=== PATIENT | female | born 1935 | race Caucasian/White ===

== ENCOUNTER 2017-09-28 01:29 | Inpatient (IN) | payer MEDICARE, OTHER ==
[2017-09-27 15:19] LABS: INR 1.02
--- NOTE | 2017-09-27 19:21 | RADIOLOGY IMAGING REPORT ---
FACILITY: [facility] PATIENT NAME: Sharlene Mazariegos : 1935 MR: [id number] V: [id number] EXAM DATE: ORDERING PHYSICIAN: ALBERTO PEÑA TECHNOLOGIST: Location: [facility] Patient: Sharlene Mazariegos : 1935 Visit/Account:[id number] Date of Sevice: 09/20/2017 LEGS BILAT STANDING HIPS-ANKLE Indication: PREOP Comparison: None. Findings: Right leg length: 82 cm. This is measured from the cephalad portion of the femoral head to the tibia l distal articular surface. Right femur measurement from the superior margin of the femoral head to the medial femoral condyle is 46.5 cm.. The right tibia measures 35 cm from the medial tibial platea u to the medial tibial plafond. Left leg measurement: 81 cm. The left femur measures 45.5 cm from the superior margin of the left fe moral head to the medial femoral condyle. The left tibia measures 35 cm from the medial tibial plate au to the medial tibial plafond. There are postoperative changes from a right total hip arthroplasty and right knee arthroplasty. Ther e are severe degenerative changes in the left knee. Impression: 1. Right lower extremity length is 82 cm. There are postoperative changes from a right total hip and right total knee arthroplasty. 2. Left lower extremity length is 81 cm. There are severe osteoarthritic degenerative changes in the left knee. Report Dictated By: Yuval Guajardo at 09/27/2017 7:05 PM Report E-Signed By: Yuval Guajardo at 09/27/2017 7:16 PM WSN:[id number]
[~2017-09-28] VITALS: Ht 160 cm; Wt 63.0 kg
[2017-09-28] VITALS (15 sets, daily range): BP systolic 88–142; BP diastolic 43–87
[~2017-09-28 01:29] MED LIST: AMI200 PO; ASPI-1471 PO; CHOL100058 PO; CIP500 PO; COS10OD OP; DOC100 PO; GLAUCOMA DROPS; HCTZ25 PO; HYDR-2966 PO; HYDR12.556 PO; LATA2.5D7 OP; LEV75 PO; LISI-374 PO; METO-259 PO; METO25TA23 PO; MOM PO; OXYC-823 PO; OXYC5CAP21 PO; PREGABALIN PO ONE; RIV10 PO; TAPE50TA8 PO
[2017-09-28] MEDS ORDERED: ACETAMINOPHEN 500 MG TAB PO ONE ×2 (07:30→08:55)
[2017-09-28] MEDS ORDERED: CELECOXIB 200 MG CAP PO ONE ×2 (07:30→08:55)
[2017-09-28] MEDS ORDERED: LIDOCAINE MPF 1% 5 ML VIAL ONE (07:53)
[2017-09-28] MEDS ORDERED: ONDANSETRON 4 MG/2 ML VIAL ONE (07:53)
[2017-09-28] MEDS ORDERED: DEXAMETHASONE SOD 4 MG/ML VIAL ONE (07:53)
[2017-09-28] MEDS ORDERED: PROPOFOL EMUL(*) 10MG/ML 20 ML 20 ML ONE (07:53)
[2017-09-28] MEDS ORDERED: ePHEDrine 25 MG/5 ML DISP.SYR IVP ONE (08:27)
[2017-09-28] MEDS ORDERED: MIDAZOLAM 2 MG/2 ML VIAL IVP PRN (08:55)
[2017-09-28] MEDS ORDERED: NORMOSOL R SOLN(*) 1000 ML BAG 1,000 ML IV PRN (08:55)
[2017-09-28] MEDS ORDERED: ceFAZolin(*) 1 GM VIAL 1 GM in NS(*) 0.9% 100 ML ADDVANT BAG 100 ML IVPB ONE (08:55)
[2017-09-28] MEDS ORDERED: PREGABALIN PO ONE (08:55)
[2017-09-28] MEDS ORDERED: PREGABALIN 50 MG CAP PO ONE (08:55)
[2017-09-28] MEDS ORDERED: FAMOTIDINE 20 MG TAB PO ONE (08:55)
[2017-09-28] MEDS ORDERED: LIDOCAINE/SOD BICARB 8.4% SYR ID ONE (08:55)
[2017-09-28] MEDS ORDERED: cloNIDine EPIDUR INJ 100MCG/ML 40 MCG, ROPIVACAINE 0.5% 20 ML VIAL 25 ML, EPINEPHrine H... INJ ONE (08:55)
[2017-09-28] MEDS ORDERED: TRANEXAMIC AC 1000 MG/10ML SDV 1,000 MG in DEXTROSE 5% 50 ML BAG 50 ML IV ONE (08:55)
[2017-09-28] MEDS ORDERED: MIDAZOLAM 2 MG/2 ML VIAL IVP ONE (08:55)
[2017-09-28] MEDS ORDERED: MORPHINE PF 5 MG/10 ML AMP ONE (09:11)
[2017-09-28] MEDS ORDERED: fentaNYL CITR 100 MCG/2 ML AMP ONE ×2 (09:15→10:45)
[2017-09-28] MEDS ORDERED: KETAMINE HCL 200 MG/20 ML MDV ONE (10:09)
[2017-09-28] MEDS ORDERED: KCL/D5LR 20 MEQ/1000 ML PREMIX 1,000 ML IV PRN (12:15)
[2017-09-28] MEDS ORDERED: ACETAMINOPHEN 500 MG TAB PO PRN (12:15)
[2017-09-28] MEDS ORDERED: MAGNESIUM CITRATE 300 ML BTL PO PRN (12:15)
[2017-09-28] MEDS ORDERED: FLUSH 10 ML SYR IVP PRN (12:15)
[2017-09-28] MEDS ORDERED: ONDANSETRON 4 MG/2 ML VIAL IVP PRN ×2 (12:15→12:35)
[2017-09-28] MEDS ORDERED: PROMETHAZINE 25 MG/ML 1 ML AMP IVP PRN (12:15)
[2017-09-28] MEDS ORDERED: diphenhydrAMINE 25 MG CAP PO PRN (12:15)
[2017-09-28] MEDS ORDERED: MORPHINE SULFATE 30 MG PCA IV PRN (12:15)
[2017-09-28] MEDS ORDERED: NALOXONE HCL 0.4 MG/ML VIAL IVP PRN (12:15)
[2017-09-28] MEDS ORDERED: NALBUPHINE HCL 10 MG/ML AMP IVP PRN (12:35)
--- NOTE | 2017-09-28 13:19 | Hospitalist Consultation ---
History of Present Illness Requesting Physician Dr. Saez Reason for Consult Hypertension History of Present Illness This patient was admitted for knee replacement surgery. It is reported that the surgery went well and was without complication. History Problems: (1) Benign hypertension Status: Chronic (2) History of cardiac radiofrequency ablation Status: Chronic (3) Atrial fibrillation Status: Chronic Home Meds Reported Medications Hydrochlorothiazide (HYDROCHLOROTHIAZIDE) 25 Mg Tablet, 1 TAB PO QDAY, TAB 09/20/17 Dorzolamide Hcl/Timolol Maleat (DORZOLAMIDE-TIMOLOL EYE DROPS) 10 Ml Drops, 1 DROP OP BID 08/25/16 Latanoprost (LATANOPROST) 2.5 Ml Drops, 1 DROP OP QHS 08/25/16 Aspirin (ASPIR 81) 81 Mg Tablet.dr, 81 MG PO QAM, TAB 08/25/16 Cholecalciferol (Vitamin D3) (VITAMIN D) 1,000 Unit Capsule, 1000 UNIT PO QDAY, CAPSULE 08/25/16 Metoprolol Succinate (METOPROLOL SUCCINATE) 25 Mg Tab.er.24h, 1 TAB PO QAM, TAB 08/25/16 Levothyroxine Sodium (Synthroid/Levothroid) 0.075 Mg Tab, 0.075 MG PO QAM 09/25/11 Allergies: Coded Allergies: No Known Drug Allergies (Unverified , 08/25/16) Patient History: FH: heart disease FATHER FH: lung cancer BROTHER OR SISTER FH: stroke MOTHER Hx Smoking: No Caffeine Intake: Tea Caffeine/Cups Per Day: OCCASSIONALLY Hx Alcohol Use: No Hx Substance Use Disorder: No Social Drug Use: Never Review of Systems All Systems Reviewed/Normal: Yes Exam Vital Signs Vital Signs Date Time Temp Pulse Resp B/P (MAP) Pulse Ox O2 Delivery O2 Flow Rate FiO2 09/28/17 13:06 97.6 61 129/70 (89) 99 Nasal Cannula 2.0 09/28/17 12:45 10 Neuro: No Gross deficits Eyes: PERRLA Cardiovascular: Regular Rate and Rhythm Respiratory: Clear to Auscultation Extremities: No Edema Integumentary: No Cyanosis Medical Decision Making Data Points Result Diagram: 09/28/17 1211 Assessment and Plan Problems: (1) S/P knee replacement Status: Acute Assessment & Plan: She is on aspirin prophylaxis. (2) Benign hypertension Status: Chronic Assessment & Plan: She is on chronic treatment with metoprolol and hydrochlorothiazide. The metoprolol has been ordered with hold parameters. The diuretic remains on hold. Venous Thromboembolism Antithrombotics Is Pt On Any Antithrombotics?: No CLAUDIA ARRINGTON DO September 28, 2017 13:19
--- NOTE | 2017-09-28 13:52 | RADIOLOGY IMAGING REPORT ---
FACILITY: [facility] [place] PATIENT NAME: Sharlene Mazariegos : 1935 MR: [id number] V: [id number] EXAM DATE: ORDERING PHYSICIAN: ALBERTO PEÑA TECHNOLOGIST: Location: [facility] [place] Patient: Sharlene Mazariegos : 1935 Visit/Account:[id number] Date of Sevice: 09/28/2017 Exam type: KNEE LIMITED LEFT History: S/P TOTAL KNEE ARTHROPLASTY Comparison: Bilateral standing legs a third 2018. Findings: There is a left knee arthroplasty in good anatomic alignment. An additional orthopedic screw valerie es the distal femoral condyles. Soft tissue gas projects over the anterior aspect of this postoperat bhavana knee IMPRESSION: 1. As above Report Dictated By: Liyah Black MD at 09/28/2017 1:46 PM Report E-Signed By: Liyah Black MD at 09/28/2017 1:47 PM WSN:[id number]
[2017-09-28] MEDS: ceFAZolin(*) 1 GM VIAL 1 GM in NS(*) 0.9% 100 ML ADDVANT BAG 100 ML IV SCH (16:40)
[2017-09-28] MEDS ORDERED: ceFAZolin 1 GM VIAL IVP SCH (17:00)
--- NOTE | 2017-09-28 17:03 | OPERATIVE REPORT 1 ---
EVENT DATE: September 28, 2017 SURGEON: Yousif Saez MD ANESTHESIOLOGIST: Kyle Jones MD ANESTHESIA: General plus Duramorph spinal. 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 POSTOPERATIVE DIAGNOSES 1. 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 2. Large anterior femoral cyst extending down into the medullary canal. 3. Multiple posteromedial osteophytes, part of which most likely had accessory collateral ligament attached. PROCEDURE PERFORMED Left total knee arthroplasty with interfragmentary fixation to supplement stability of distal femur, bone grafting of large femoral cyst. ESTIMATED BLOOD LOSS 50 INTRAVENOUS FLUIDS Crystalloid 1400. Colloid none. TOURNIQUET TIME 81 at 275. SPECIMENS No specimens. COMPLICATIONS Anterior femoral fracture noted to extend from the posterior stabilized box cut into the large cystic deficient region of the femur without significant displacement, in association with probable rupture of accessory medial collateral ligament with intact primary collateral on the medial side. IMPLANTS USED DePuy Camblyune 5 PS femur cut at 6 degrees 9 mm off the end of the femur with a 5 x 6 mm fixed bearing insert, a 5 fixed bearing tibia, and 32 anatomic patella, all cemented. SUMMARY OF PROCEDURE The patient was brought into the operating room and placed on the OR table in the supine position. After Dr. Jones had accomplished the Duramorph spinal and the general anesthetic, her left lower extremity was prepped and draped in the usual sterile fashion. The limb was exsanguinated, and the tourniquet was inflated. A utilitarian anterior incision was made, deepened through skin and subcutaneous tissue. Cautery was used where necessary for hemostasis. A medial parapatellar arthrotomy followed. The fluid was clear. She had a tremendous amount of osteophyte formation which actually obscured the notch almost completely and were more than a centimeter over the medial aspect of the femoral condyle extending laterally as well. It took some time to use a rongeur to remove all of these osteophytes, including along the margins of the collateral where they were tenting the collateral significantly. Once we had accomplished this, we drilled the distal hole for the femoral guide keeley, and it was actually quite challenging to put it up. It would not go initially. We checked our angles a couple times and also had looked at the long plate films. Her isthmus was extremely narrow. I used the tibial long alignment keeley first and then went back to the femoral, and we were able to get good alignment guidance at that point. We cut it at 6 degrees as per the long plate films, which had measured 5.7, and 9 mm were removed from the end. We then sized the knee, and it looked like a 5 would fit best, which was the same as the opposite side. We set the block for the 5, cut anteriorly, at which point we noticed upon removing the fragment of bone that there was a very large intraosseous cyst approximately 3 cm long and about 7 mm wide. I went about curettaging this , but it was actually communicating with the medullary canal, creating a fairly significant deficiency and strength at this location. Initially, we did nothing with this, but later we would have to take some steps to help secure it. With the additional cuts completed, we did a trial to see if the box cut would fit well, and it did. It looked like a standard 5 would fit best. We did our distal femoral cuts for the box cut and rasped it smooth. We then did a trial femoral reduction, and it fit well, and we drilled the lug holes. We then directed our attention to the tibia. After placing a posterior double prong retractor with padding and a lateral double prong, the extra fat pad was removed. The ACL had already been absent. The patellofemoral ligament had already been released. We also had released soft tissues as necessary, including a fairly significant medial periosteal release because of her significant varus deformity. We then gained intramedullary guidance for the tibia and cut approximately 2 mm below the deficient medial side which had a lot of bone missing. We then sized with a 4 and 5. It looked like the 5 would fit best. There was a lot of osteophyte medially that was removed. We sized again, and still the 5 fit better than the 4. Before securing the tibial component, I then used the suitcase handle retractor to elevate the femur and remove the abundant osteophytes on the medial side. It took quite a long time to do this as they were adherent to the soft tissues and probably in retrospect attached to some of the accessory medial collateral ligaments. Once this was released, we got better balance of the knee and then prepared our tibia and did the trial. It looked like a 5 was a bit tight medially, a 6 would probably fit reasonably well, but I would like to get a little bit tighter on the lateral side, so we tensioned the medial collateral ligament in valgus and then used an 18-gauge needle to multiply fenestrate it. During the course of this, a loud report was heard as the knee suddenly went into better valgus, but it did not go all the way as though the entire MCL had released. I was not sure what had actually just happened. We checked to see if a fracture had occurred, but we did not see that. It appeared that the accessory collateral ligament had probably released. It was still very stable, in fact now perfectly balanced in full extension. There was no hyperextension. When in mid flexion, it felt slightly loose medially, and when in full flexion, I could rotate the medial condyle of the tibia forward more than average, but we had also done a pretty extensive medial release. All in all, it actually balanced the knee better. It was at this point, however, that we had also noticed there was a small fissure in the femur extending from the box cut up into the large cyst. The report that we heard was almost certainly the medial collateral ligament, not the femur. There was very little displacement, just a slight step-off, easily reduced. I then checked stability of the condyle, and it looked like it would probably be okay to leave it as it was with the cemented femur, but just to be cautious, I placed a 4.5 mm large fragment screw in interfragmentary fixation with a lag screw technique and a washer from lateral to medial to prevent any propagation of the fracture. In addition, we used bone graft to densely pack the large cyst that was in the femur so it would hopefully grow back in and seal this weak spot up. After repeating all trials, it looked like the sizes would fit well with a 6 mm posterior stabilized insert. We irrigated all wounds. I additionally drilled the medial eburnated bone to give better purchase for the cement, and then we inserted all final devices with the exception of the insert. Excess cement has been removed. The patella had very large osteophytes as well, and I decided to use a libertad when doing its cut so that we would not end up too thin. We ended up with about a 14 mm patella. The 32 patella fit better than the 35 which she had had on the other side. When all cement had polymerized and excess cement had been removed, we once again tested her. She still had excellent stability with good balance in extension. We used a 5 final insert, placed this, and then irrigated once again. The tourniquet had been deflated after final cementation. There was minimal bleeding. We injected a cocktail in the posterior capsule as well as around the periosteum, and then wound was then closed in layers using #1 Vicryl suture for the capsule, 2-0 Vicryl for the subcutaneous tissue, 4-0 Monocryl for the skin, and then the Dermabond Prineo adhesive with mesh anteriorly. She tolerated the procedure well. She was awakened and transferred to the recovery room in stable condition. PLAN The plan was made to support her with a T-Scope Brace just to help with stability since there was the question of the small fracture in the distal femur and cyst as well as the accessory collateral laxity in flexion. I felt that this would probably be best, although I do not think I will need to do a full six weeks. We will probably just go four weeks. ANDREW
[2017-09-28] MEDS: DORZOLAMIDE/TIMOLOL 10 ML BTL OU SCH (20:59)
[2017-09-28] MEDS: LATANOPRO 0.005% OP SOLN 2.5ML OU SCH (20:59)
[2017-09-29] MEDS: ceFAZolin(*) 1 GM VIAL 1 GM in NS(*) 0.9% 100 ML ADDVANT BAG 100 ML IV SCH ×2 (00:24→09:50)
[2017-09-29 02:50] VITALS: BP 101/75
[2017-09-29] MEDS: LEVOTHYROXINE SOD 0.075 MG TAB PO SCH (05:24)
[2017-09-29 06:36] LABS: PLATELET COUNT, AUTOMATED 113 K/uL (150-450)
[2017-09-29 07:59] VITALS: BP 96/68
[2017-09-29] MEDS: METOPROLOL SUCC XL 25 MG TABCR PO SCH (09:00)
[2017-09-29] MEDS: ASPIRIN 325 MG ENTERIC COATED PO SCH (09:50)
[2017-09-29] MEDS: DORZOLAMIDE/TIMOLOL 10 ML BTL OU SCH ×2 (09:51→21:07)
[2017-09-29] MEDS ORDERED: CEPHALEXIN MONO 500 MG CAP PO ONE (13:05)
[2017-09-29 13:52] VITALS: Ht 160 cm; Wt 63.0 kg
--- NOTE | 2017-09-29 14:27 | Hospitalist Progress Note ---
Subjective Progress Notes Subjective Mrs. Mazariegos is an 82 y.o. female with PMH of HTN, AFib s/p Ablation, Breast Cancer s/p Mastectomy, Skin Cancer and Arthritis who underwent L-TKA by Dr. Peña on 09/28/17. She tolerated the procedure and doing well with PT. Her HCTZ is o hold and she is on Metoprolol for her BP. She is asymptomatic, afebrile and hemodynamically stable today without any significant complaint. She had a BM yesterday and she ambulated today with no much pain. Patient Complains of: Neurological: No: Confusion, Weakness, Dizziness Cardiovascular: No: Chest Pain, Palpitations Respiratory: No: Cough, Shortness of Breath Gastrointestinal: Bowel Movement, No Nausea, No Vomiting, No Flatus Genitourinary: No Dysuria, No Hematuria Musculoskeletal: Pain, No: Sprain, Strain Physical Exam Vital Signs Date Time Temp Pulse Resp B/P (MAP) Pulse Ox O2 Delivery O2 Flow Rate FiO2 09/29/17 07:59 97.8 69 16 96/68 (77) 89 Room Air 09/29/17 02:50 1.0 Intake and Output 09/30/17 06:59 Intake Total 410 ml Balance 410 ml Intake Oral 410 ml # Voids 1 General Appearance: Alert, Awake, No Acute Distress, Afebrile Neuro: No Gross deficits Eyes: PERRLA ENT: Normal Cardiovascular: No Edema, No JVD Respiratory: No Respiratory Distress GI: Soft and Non-Tender Extremities: Other (tender with ambulation but improving) Psych: Alert & Oriented X3, Appropriate Mood & Affect Result Diagram: 09/29/17 0612 Assessment and Plan Problems: (1) S/P knee replacement Status: Acute Assessment & Plan: She is on aspirin prophylaxis. 09/29: Management as per surgery, will continue her ASA (2) Benign hypertension Status: Chronic Assessment & Plan: She is on chronic treatment with metoprolol and hydrochlorothiazide. The metoprolol has been ordered with hold parameters. The diuretic remains on hold. 09/29: She is hemodynamically stable and I will continue her present management. Time Spent on Plan of Care: < 30 min Copies to: ALBERTO PEÑA MD; YOLANDA RESENDEZ MD Exam Sepsis Risk: No Definite Risk TAMIR GREY MD September 29, 2017 14:27
[2017-09-29 14:45] VITALS: BP 96/69
[2017-09-29 19:18] VITALS: BP 112/69
[2017-09-29] MEDS: LATANOPRO 0.005% OP SOLN 2.5ML OU SCH (21:07)
[2017-09-29 23:00] VITALS: BP 95/61
[2017-09-30 06:16] LABS: PLATELET COUNT, AUTOMATED 98 K/uL (150-450)
[2017-09-30 06:18] VITALS: BP 95/79
[2017-09-30] MEDS: LEVOTHYROXINE SOD 0.075 MG TAB PO SCH (06:24)
[2017-09-30 07:51] VITALS: BP 112/67
[2017-09-30] MEDS: ASPIRIN 325 MG ENTERIC COATED PO SCH (08:21)
[2017-09-30] MEDS: DORZOLAMIDE/TIMOLOL 10 ML BTL OU SCH (08:23)
[2017-09-30] MEDS: METOPROLOL SUCC XL 25 MG TABCR PO SCH (08:23)
[2017-09-30 10:47] VITALS: BP 102/74
[2017-09-30] MEDS ORDERED: OXYC5TAB38 PO (12:39)
== END 2017-09-30 14:30 | disposition home or self-care (01) | DRG 470 ==
LOC: OR 01:29 → MED 13:00
PROVIDERS: ADMIT Orthopaedic Surgery Hand Surgery; ATTEND Orthopaedic Surgery Hand Surgery
PROC: 0QUC0KZ Supplement Left Lower Femur with Nonautologous Tissue Substitute, Open Approach (ICD-10-PCS; 2017-09-28)
PROC: 0QHC04Z Insertion of Internal Fixation Device into Left Lower Femur, Open Approach (ICD-10-PCS; 2017-09-28)
PROC: 0SRD0J9 Replacement of Left Knee Joint with Synthetic Substitute, Cemented, Open Approach (ICD-10-PCS; principal; 2017-09-28 09:19)
DX: M17.12 Unilateral primary osteoarthritis, left knee (principal); M96.662 Fracture of femur following insertion of orthopedic implant, joint prosthesis, or bone plate, left leg; M25.762 Osteophyte, left knee; M25.862 Other specified joint disorders, left knee; I10 Essential (primary) hypertension; I48.2 Chronic atrial fibrillation; Y65.8 Other specified misadventures during surgical and medical care; Y79.3 Surgical instruments, materials and orthopedic devices (including sutures) associated with adverse incidents; Y92.234 Operating room of hospital as the place of occurrence of the external cause; Z95.0 Presence of cardiac pacemaker; Z96.641 Presence of right artificial hip joint; Z96.651 Presence of right artificial knee joint; Z85.3 Personal history of malignant neoplasm of breast; Z90.12 Acquired absence of left breast and nipple; Z85.828 Personal history of other malignant neoplasm of skin
CPT/HCPCS: 36415; 77073; 82310; 82374; 82435; 82565; 82947; 84132; 84295; 84520; 85014; 85018; 85025; 85610; 86850; 86900; 86901; 97161; C1713; C1776; J0171; J0690; J0735; J1100; J1885; J2001; J2250; J2270; J2405; J2704; J2795; J3010; J3480; J3490; J7050; J7060; L1832